=== PATIENT | male | born 1985 | race Caucasian/White ===

== ENCOUNTER 2019-12-14 02:01 | Outpatient (CLI) | payer OTHER, SELFPAY ==
[2019-12-14 22:26] LABS: SARS-CoV-2 RNA PCR Negative
== END 2019-12-14 02:02 | disposition home or self-care (01) ==
LOC: ANHCOVIDDT 02:02
PROVIDERS: PCP Family Medicine; Visit Provider Surgery
DX: Z01.818 Encounter for other preprocedural examination (principal); Z20.828 Contact with and (suspected) exposure to other viral communicable diseases
CPT/HCPCS: 87635; C9803; U0003

== ENCOUNTER 2019-12-18 00:49 | Day surgery (SDC) | payer OTHER, SELFPAY ==
[2019-12-12 09:22] VITALS: BMI 18.4
--- NOTE | 2019-12-17 13:36 | WPDANESEPPF ---
Anes - Initial Pre Proc Eval Procedure: Operation Date: 12/18/19 12:00 Proposed Procedures p Rectal Exam Under Anesthesia, Hemorrhoidectomy - Abby Sin MD Date/Time: 12/17/19 13:36 Surgeon: Abby Sin MD Pre Op Diagnosis: external hemorrhoids, rectal pain and bleeding Patient Data Age: 34 Gender: M Height: 1.75 m Weight: 56.7 kg Allergies Allergy/AdvReac Type Severity Reaction Status Date / Time Penicillins Allergy Mild Unknown- Verified 12/12/19 09:17 OCCURED CHILD amoxicillin Allergy Unknown Unknown- Verified 12/12/19 09:17 OCCURED CHILD erythromycin base Allergy Unknown Unknown - Verified 12/12/19 09:17 OCCURED CHILD penicillin G Allergy Unknown Unknown- Verified 12/12/19 09:17 OCCURED CHILD Sulfa (Sulfonamide Allergy Unknown Unknown- Verified 12/12/19 09:17 Antibiotics) OCCURED CHILD Home Medications Medication Instructions Recorded Confirmed Type warfarin 5 mg tablet See Rx Instructions PO .COMPLEX #0 06/20/19 12/12/19 Rx tablet alprazolam 0.5 mg tablet 0.5 mg PO QID PRN #120 tablet 10/15/19 12/12/19 Rx hydrocortisone 2.5 % topical cream 1 applic RECTAL DAILY PRN #30 gm 11/22/19 12/12/19 Rx with perineal applicator tramadol 50 mg tablet 50 mg PO Q6H PRN #30 tablet 11/24/19 12/12/19 Rx Cbd Gummy 1 ea PO DIRECTED PRN 12/12/19 History cholecalciferol (vitamin D3) 125 mcg PO DAILY 12/12/19 12/12/19 History [Vitamin D3] mirtazapine 15 mg PO HS 12/12/19 12/12/19 History multivitamin 1 tablet PO DAILY 12/12/19 12/12/19 History warfarin See Rx Instructions .ROUTE .COMPLEX 12/12/19 12/12/19 History PMFSH Past Medical History Medical History (Updated 12/17/19 @ 13:38 by Larry Prabhakar MD) Anorexia Anxiety Atresia congenital, pulmonary, valve Atrial fibrillation Depression Electronic cigarette use External hemorrhoid History of blood transfusion History of cardiac murmur penitentiary current use of anticoagulant Janie Tobacco use disorder, moderate, dependence Surgical History Surgical History History of cardioversion History of open heart surgery Family History Family History Mother Family history of malignant neoplasm of breast in first degree relative Father Depression Grandparent Cerebrovascular accident Nervous disorder Other Family history of coronary artery disease Family history of malignant neoplasm of breast Hypertension Social History Social History Smoking packs per day: 1.5 Smoking cigarettes per day: 30.0 Years smoked: 18 Smoking pack-years: 27.00 Smoking status: Current every day smoker (e-ciggs) Tobacco type: cigarettes and e-cigarettes/vaping Additional smoking assessment comments: QUIT CIGARETTES 2019 CURRENT VAPOR CIGARETTE Alcohol intake: never Substance use: current Substance use type: marijuana Last use: 12/12/2019 Spiritual care concerns: No Anes - Eval Final PreProcedure Day of Procedure 12/17/19 13:36 Patient weight: normal Heart: regular rate and rhythm Lungs: clear to auscultation and normal air movement Airway: Mallampati scale class II Neurological: alert and oriented Last oral intake: >/= 8 hours ASA classification: III Emergent: no Anesthetic plan: proceed Anesthesia type and monitoring: general GIVS Informed Consent: The patient's anesthetic plan and its attendant risks and benefits were discussed with the patient/family/POA. Questions were solicited and answers provided to the satisfaction of the patient/family/POA.
[2019-12-18] VITALS (11 sets, daily range): BP systolic 89–164; BP diastolic 53–122; PULSE 57–73; RESP 10–18; TEMP 36.1–36.4; O2SAT 100
[2019-12-18] MEDS: LACTATED RINGERS 1,000 ML 30 ML IV CONT ×2 (10:35→12:13)
[2019-12-18] MEDS: KETOROLAC 15 MG/ML VIAL (*BKC) IV PUSH (10:39)
[2019-12-18] MEDS: ACETAMINOPHEN 500 MG TABLET 1000 MG PO (10:39)
--- NOTE | 2019-12-18 10:40 | WPDHPUPDATE1 ---
History and Physical Update Update Date/Time: 12/18/19 10:40 History and Physical has been reviewed, including an updated exam of the patient. There are NO changes in the patient's condition. Risks, benefits, and alternatives have been discussed and questions answered. Patient agrees to proceed with procedure.
[2019-12-18 11:03] LABS: INR 1.1; Prothrombin Time 14.6 Seconds (11.1-14.7)
[2019-12-18 11:04] LABS: Partial Thromboplastin Time 32.7 SECONDS (22.3-36.8)
--- NOTE | 2019-12-18 11:11 | WPDANESEPPF ---
Anes - Initial Pre Proc Eval Procedure: Operation Date: 12/18/19 12:00 Proposed Procedures p Rectal Exam Under Anesthesia, Hemorrhoidectomy - Abby Sin MD Date/Time: 12/18/19 11:11 Surgeon: Abby Sin MD Pre Op Diagnosis: external hemorrhoids, rectal pain and bleeding Patient Data Age: 34 Gender: M Height: 5 ft 9 in Weight: 56 kg Last Vital Signs Temp 36.4 C L 12/18/19 10:11 Pulse 70 12/18/19 10:11 Resp 18 12/18/19 10:11 BP 93/65 L 12/18/19 10:11 Pulse Ox 100 12/18/19 10:11 Allergies Allergy/AdvReac Type Severity Reaction Status Date / Time Penicillins Allergy Mild Unknown- Verified 12/18/19 10:49 OCCURED CHILD amoxicillin Allergy Unknown Unknown- Verified 12/18/19 10:49 OCCURED CHILD erythromycin base Allergy Unknown Unknown - Verified 12/18/19 10:49 OCCURED CHILD penicillin G Allergy Unknown Unknown- Verified 12/18/19 10:49 OCCURED CHILD Sulfa (Sulfonamide Allergy Unknown Unknown- Verified 12/18/19 10:49 Antibiotics) OCCURED CHILD Home Medications Medication Instructions Recorded Confirmed Type warfarin 5 mg tablet See Rx Instructions PO .COMPLEX #0 06/20/19 12/18/19 Rx tablet alprazolam 0.5 mg tablet 0.5 mg PO QID PRN #120 tablet 10/15/19 12/18/19 Rx hydrocortisone 2.5 % topical cream 1 applic RECTAL DAILY PRN #30 gm 11/22/19 12/18/19 Rx with perineal applicator tramadol 50 mg tablet 50 mg PO Q6H PRN #30 tablet 11/24/19 12/18/19 Rx Cbd Gummy 1 ea PO DIRECTED PRN 12/12/19 12/18/19 History cholecalciferol (vitamin D3) 125 mcg PO DAILY 12/12/19 12/18/19 History [Vitamin D3] mirtazapine 15 mg PO HS 12/12/19 12/18/19 History multivitamin 1 tablet PO DAILY 12/12/19 12/18/19 History warfarin See Rx Instructions .ROUTE .COMPLEX 12/12/19 12/18/19 History Laboratory Tests 12/18/19 10:28 PT 14.6 Seconds Seconds (11.1-14.7) INR 1.1 APTT 32.7 SECONDS SECONDS (22.3-36.8) Patient hx anesthesia problems: post op nausea/vomiting Family hx anesthesia problems: none PMFSH Past Medical History Medical History Anorexia Anxiety Atresia congenital, pulmonary, valve Atrial fibrillation Depression Electronic cigarette use External hemorrhoid History of blood transfusion 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 Janie Tobacco use disorder, moderate, dependence Surgical History Surgical History History of cardioversion History of open heart surgery Family History Family History Mother Family history of malignant neoplasm of breast in first degree relative Father Depression Grandparent Cerebrovascular accident Nervous disorder Other Family history of coronary artery disease Family history of malignant neoplasm of breast Hypertension Social History Social History Smoking packs per day: 1.5 Smoking cigarettes per day: 30.0 Years smoked: 18 Smoking pack-years: 27.00 Smoking status: Current every day smoker (e-ciggs) Tobacco type: cigarettes and e-cigarettes/vaping Additional smoking assessment comments: QUIT CIGARETTES 2019 CURRENT VAPOR CIGARETTE Alcohol intake: never Substance use: current Substance use type: marijuana Last use: 12/12/2019 Spiritual care concerns: No Anes - Eval Final PreProcedure Day of Procedure 12/18/19 11:11 Patient weight: normal Heart: regular rate and rhythm Lungs: clear to auscultation Airway: Mallampati scale class II Neurological: alert and oriented Last oral intake: >/= 8 hours ASA classification: III Emergent: no Anesthetic plan: proceed Anesthesia type and monitoring: general GIVS and standard monitoring Informed Consent: The patient's anesthet
[2019-12-18] MEDS: CLINDAMYCIN 900 MG/D5W 50 ML 900 MG/50 ML PIGGYBACK 50 MG IVPB (12:08)
[2019-12-18] MEDS: LIDOCAINE HCL 2% GEL UROJET 10 ML PKG MUCOUS MEM (12:48)
--- NOTE | 2019-12-18 12:53 | PM.PROC ---
Procedure Note - Detailed Date of procedure: 12/18/19 Pre-op diagnosis: external hemorrhoids, rectal pain and bleeding Procedure performed: Exam under anesthesia, external hemorrhoidectomy Description of procedure: The patient was taken the operating room placed in the modified lithotomy position. After adequate induction of MAC anesthesia, the patient prepped and draped in the normal sterile fashion. A time-out was then done to verify the patient's identity, as well as the procedure being performed. A bilateral pudendal block was then done. I began by doing a digital rectal exam. Patient was noted to some external hemorrhoids on exam. I then used the anoscope to further examine anal canal. At this point, it was noted that the patient had no internal hemorrhoids. Examination of the anus below the dentate line revealed multiple external hemorrhoids. Given this, I excised multiple external hemorrhoids using the LigaSure device. I also excised some skin tags. Hemostasis was noted at these areas. At this point, I placed a piece of Gelfoam coated with lidocaine jelly into the rectal vault. Sterile dressing was then placed. The patient tolerated the procedure and was extubated in the operating room postop. He will be transferred recovery room in stable condition. Implants: none Anesthesia: MAC and local Surgeon: Abby Sin MD Estimated blood loss (mL): 20 Drains: No Packing: Yes Pathology: yes Complications: No immediate complications Condition: stable Disposition: PACU Findings: multiple external hemorrhoids and skin tags
--- NOTE | 2019-12-18 13:42 | SUR.PHASEI ---
Dr. Prabhakar aware of BP and wants to continue to monitor at this time.
[2019-12-18] MEDS: fentaNYL CITRATE INJ (*CRX) 100 MCG/2 ML VIAL 25 MCG IV PUSH (14:03)
[2019-12-18] MEDS: oxyCODONE HCL (*CRX) 5 MG TAB IR PO (14:40)
== END 2019-12-18 15:16 | disposition home or self-care (01) ==
PROVIDERS: Anesthesiology; PCP Family Medicine; Visit Provider Surgery
PROC: (CPT 46250; principal; 2019-12-18 12:00)
DX: K64.4 Residual hemorrhoidal skin tags (principal); I48.0 Paroxysmal atrial fibrillation; Z79.01 Long term (current) use of anticoagulants; R63.0 Anorexia; Z68.1 Body mass index [BMI] 19.9 or less, adult; F41.9 Anxiety disorder, unspecified; F32.9 Major depressive disorder, single episode, unspecified; Q22.0 Pulmonary valve atresia; F17.290 Nicotine dependence, other tobacco product, uncomplicated; Z79.899 Other long term (current) drug therapy; Z88.0 Allergy status to penicillin; Z88.2 Allergy status to sulfonamides; Z88.1 Allergy status to other antibiotic agents
CPT/HCPCS: 46250; 36415; 85610; 85730; 88304; A9270; J1885; J2250; J2704; J3010; J7120

== ENCOUNTER → 2020-03-17 03:46 | Outpatient (CLI) | payer OTHER, SELFPAY ==
[2020-03-18 18:18] LABS: SARS-CoV-2 RNA PCR Negative
== END ==
PROVIDERS: PCP Family Medicine; Visit Provider Internal Medicine Gastroenterology
DX: Z01.812 Encounter for preprocedural laboratory examination (principal); Z20.822 Contact with and (suspected) exposure to COVID-19
CPT/HCPCS: C9803; U0003; U0005

== ENCOUNTER 2020-03-20 01:01 | Day surgery (SDC) | payer OTHER, SELFPAY ==
[2020-03-09 11:26] VITALS: BMI 19.2
[2020-03-20 09:18] VITALS: BP 127/69; PULSE 82; RESP 18; TEMP 36.8; O2SAT 100; BMI 18.6
[2020-03-20] MEDS: LACTATED RINGERS 1,000 ML 150 ML IV CONT (09:25)
--- NOTE | 2020-03-20 10:29 | WPDANESEPPF ---
Anes - Initial Pre Proc Eval Procedure: Operation Date: 03/20/20 10:30 Proposed Procedures p Colonoscopy - Ziggy Pierre MD Date/Time: 03/20/20 10:29 Surgeon: Ziggy Pierre MD Pre Op Diagnosis: Diarrhea Patient Data Age: 35 Gender: M Height: 5 ft 9 in Weight: 57.4 kg Last Vital Signs Temp 98.3 F 03/20/20 09:18 Pulse 82 03/20/20 09:18 Resp 18 03/20/20 09:18 BP 127/69 03/20/20 09:18 Pulse Ox 100 03/20/20 09:18 Allergies Allergy/AdvReac Type Severity Reaction Status Date / Time Penicillins Allergy Mild Unknown- Verified 03/20/20 09:16 OCCURED CHILD amoxicillin Allergy Unknown Unknown- Verified 03/20/20 09:16 OCCURED CHILD erythromycin base Allergy Unknown Unknown - Verified 03/20/20 09:16 OCCURED CHILD penicillin G Allergy Unknown Unknown- Verified 03/20/20 09:16 OCCURED CHILD Sulfa (Sulfonamide Allergy Unknown Unknown- Verified 03/20/20 09:16 Antibiotics) OCCURED CHILD Home Medications Medication Instructions Recorded Confirmed Type Cbd Gummy 1 ea PO DIRECTED PRN 12/12/19 03/20/20 History cholecalciferol (vitamin D3) 125 mcg PO DAILY 12/12/19 03/20/20 History [Vitamin D3] warfarin 7.5 mg PO DIRECTED 12/12/19 03/20/20 History alprazolam 1 mg tablet 1 mg PO BID #60 tablet 02/03/20 03/20/20 Rx warfarin 5 mg PO DIRECTED 03/09/20 03/20/20 History Patient hx anesthesia problems: none Family hx anesthesia problems: none PMFSH Past Medical History Medical History Anorexia Anxiety Atresia congenital, pulmonary, valve Atrial fibrillation Depression Electronic cigarette use External hemorrhoid History of blood transfusion History of cardiac murmur Irritable bowel syndrome with diarrhea USP current use of anticoagulant Janie Tobacco abuse Tobacco use disorder, moderate, dependence Surgical History Surgical History History of cardioversion History of open heart surgery Family History Family History Mother Family history of malignant neoplasm of breast in first degree relative Father Depression Grandparent Cerebrovascular accident Nervous disorder Other Family history of coronary artery disease Family history of malignant neoplasm of breast Hypertension Social History Social History Smoking packs per day: 2 Smoking cigarettes per day: 40.0 Years smoked: 16 Smoking pack-years: 32.00 Smoking status: Former smoker Tobacco type: e-cigarettes/vaping Additional smoking assessment comments: QUIT CIGARETTES 2019 CURRENT VAPOR CIGARETTE Alcohol intake: never Substance use: current Substance use type: marijuana Other substance usage details: DAILY Last use: 12/12/2019 Living arrangements: with family Spiritual care concerns: No Anes - Eval Final PreProcedure Day of Procedure 03/20/20 10:29 Patient weight: normal Heart: regular rate and rhythm and murmur Lungs: clear to auscultation Airway: Mallampati scale class II Neurological: alert and oriented Last oral intake: >/= 8 hours ASA classification: III Emergent: no Anesthetic plan: proceed Anesthesia type and monitoring: general GIVS and standard monitoring Informed Consent: The patient's anesthetic plan and its attendant risks and benefits were discussed with the patient/family/POA. Questions were solicited and answers provided to the satisfaction of the patient/family/POA.
--- NOTE | 2020-03-20 10:49 | WPDHPUPDATE1 ---
History and Physical Update Update Date/Time: 03/20/20 10:49 History and Physical has been reviewed, including an updated exam of the patient. There are NO changes in the patient's condition. Risks, benefits, and alternatives have been discussed and questions answered. Patient agrees to proceed with procedure.
[2020-03-20 11:21] VITALS: BP 99/66; PULSE 60; RESP 18; O2SAT 100
[2020-03-20 11:31] VITALS: BP 106/72; PULSE 62; RESP 17; O2SAT 100
[2020-03-20 11:41] VITALS: BP 120/87; PULSE 66; RESP 15; O2SAT 100
== END 2020-03-20 12:02 | disposition home or self-care (01) ==
PROVIDERS: PCP Family Medicine; Visit Provider Internal Medicine Gastroenterology
PROC: 0DJD8ZZ Inspection of Lower Intestinal Tract, Via Natural or Artificial Opening Endoscopic (ICD-10-PCS; CPT 45378; principal; 2020-03-20 10:30)
DX: R19.8 Other specified symptoms and signs involving the digestive system and abdomen (principal); D12.5 Benign neoplasm of sigmoid colon; K63.5 Polyp of colon; K64.8 Other hemorrhoids; K64.4 Residual hemorrhoidal skin tags; R19.7 Diarrhea, unspecified; K58.0 Irritable bowel syndrome with diarrhea; R63.0 Anorexia; Z68.1 Body mass index [BMI] 19.9 or less, adult; F41.9 Anxiety disorder, unspecified; I48.91 Unspecified atrial fibrillation; F32.9 Major depressive disorder, single episode, unspecified; Z79.01 Long term (current) use of anticoagulants; F12.90 Cannabis use, unspecified, uncomplicated; F17.290 Nicotine dependence, other tobacco product, uncomplicated
CPT/HCPCS: 45380; 45385; 88305; J2001; J2704; J7120

== ENCOUNTER 2021-09-15 15:33 | Emergency (ER) | payer OTHER, SELFPAY ==
[2021-09-15] VITALS (19 sets, daily range): BP systolic 127–151; BP diastolic 90–109; PULSE 61–81; RESP 13–25; TEMP 36.4; O2SAT 96–100
--- NOTE | ~2021-09-15 | XR_ITS ---
XR chest 2V DATE: 09/15/2021 16:46 INDICATION: Palpitations. History of atrial fibrillation. Smoking history. TECHNIQUE: PA and lateral views COMPARISON: 10/19/2016 two-view chest FINDINGS: There is prominent bilateral hyperinflation with flattening the diaphragm, consistent with COPD. Normal heart size. Aortic arch calcification. No hilar or mediastinal enlargement. No pulmonary infil trate or consolidation, pleural effusion or pulmonary vascular congestion or pneumothorax is detected . Status post sternotomy. Osteopenia. IMPRESSION: COPD Aortic atherosclerosis Reviewed, dictated and finalized at location [facility]. IMPRESSION: COPD Aortic atherosclerosis
--- NOTE | 2021-09-15 15:36 | ECG_ITS ---
Measurements Intervals [place] Rate: 74 P: 89 AK: 181 QRS: 99 QRSD: 92 T: 78 QT: 354 QTc: 393 Interpretive Statements SINUS RHYTHM RIGHT ATRIAL ENLARGEMENT [0.3mV P WAVE] LEFT ATRIAL ENLARGEMENT [-0.15mV P WAVE IN V1/V2] INCOMPLETE RIGHT BUNDLE BRANCH BLOCK RIGHT VENTRICULAR HYPERTROPHY POSSIBLE LEFT VENTRICULAR HYPERTROPHY [VOLTAGE CRITERIA PLUS LAE OR QRS WIDENING] NO PREVIOUS ECG AVAILABLE FOR COMPARISON NOTE: ST ELEVATION IN V1 AND V2 IS SUGGESTIVE, ALTHOUGH NOT DIAGNOSTIC, OF THE BRUGADA PATTERN. CONSIDER FURTHER EVALUATION IF CLINICALLY APPROPRIATE. Electronically Signed On 09-15-2021 18:46:48 CDT by Olga Mathis M.D.
[2021-09-15 16:01] LABS: Basophils Percent Auto 0.5 % (0.2-1.2); Eosinophils Absolute Auto 0.1 K/mm3 (0-0.3); Eosinophils Percent Auto 1.1 % (0-4.4); Hematocrit 43.7 % (42.0-52.0); Hemoglobin 14.5 g/dL (14.0-18.0); Immature Granulocyte Absolute 0.04 K/mm3 (0.00-0.031); Immature Granulocyte Percent A 0.5 % (0-0.5); Lymphocytes Absolute Auto 2.03 K/mm3 (0.9-3.2); Lymphocytes Percent Auto 23.3 % (18.3-44.2); Mean Corpuscular HGB Conc 33.2 g/dl (32-36); Mean Corpuscular Hemoglobin 30.8 pg (26-34); Mean Corpuscular Volume 92.8 fl (80-100); Mean Platelet Volume 10.9 fl (7.4-10.4); Monocytes Absolute Auto 0.7 K/mm3 (0.1-0.6); Neutrophils Absolute Auto 5.8 K/mm3 (1.3-6.7); Neutrophils Percent Auto 66.6 % (45.5-73.1); Platelet Count Result 222 k/mm3 (150-375); Red Blood Count 4.71 M/mm3 (4.6-6.20); Red Cell Distribution Width 12.4 % (11.5-14.5); White Blood Count 8.7 K/mm3 (4.5-10.0)
[2021-09-15 16:09] LABS: Alanine Aminotransferase 49 U/L (6-50); Albumin Level 4.6 g/dL (3.5-5.1); Alkaline Phosphatase 71 U/L (38-126); Anion Gap 7 mmol/L (8-16); Aspartate Amino Transferase 53 U/L (17-59); Bilirubin,Total 0.5 mg/dL (0.2-1.3); Blood Urea Nitrogen 22 mg/dL (9-20); Calcium 9.6 mg/dL (8.4-10.2); Carbon Dioxide 30 mmol/L (22-30); Chloride 97 mmol/L (98-107); Estimated CRCL calculation 85 ml/min; Estimated Glomerular Filt Rate > 60; Glucose 97 mg/dL (65-110); INR 3.6; Lipase 99 U/L (23-300); Potassium 4.5 mmol/L (3.4-5.0); Sodium 134 mmol/L (137-145)
[2021-09-15 16:10] LABS: Partial Thromboplastin Time 55.3 SECONDS (22.3-36.8)
[2021-09-15 16:20] LABS: Troponin I < 0.012 ng/mL (0.000-0.034)
--- NOTE | 2021-09-15 17:42 | ED.CHESTPAIN ---
HPI - Chest Pain General Chief Complaint: Chest Pain Stated Complaint: chest pain, palp, L sided numbness since 8am Time Seen by Provider: 09/15/21 17:38 Source: patient Mode of arrival: ambulatory Limitations: no limitations History of Present Illness HPI narrative: Patient is a 36 y/o male who presents to the ED with c/o CP. Patient has Hx of congenital heart defect/pulmonary atresia and atrial fibrillation since he was 5 yrs old. On Warfarin therapy, goal 2-3. No Hx of CAD. Patient reports he thinks he went into atrial fibrillation for a brief few seconds on Monday night. He has had intermittent palpitations, as well as intermittent brief numbness in his left-sided face/arm over the last 2 days since then. This morning, he reported having pain in his left lower chest, rated a 0.5-1 out of 10 on the pain scale. He notes he did lots of yard work this weekend and thought he may have overdone it. He tried taking a hydrocodone without relief of pain. Pain has persisted throughout the day, occurring for seconds at a time, several times throughout the day. He states pain was worse with stressful situations at work, but denies aggravation with exertion or any other aggravating factors. Denies any shortness of breath, pleuritic pain, dyspnea on exertion, nausea, vomiting, abdominal pain, BLE pain or swelling, focal weakness, slurred speech, confusion. Related Data Home Medications Medication Instructions Recorded Confirmed cholecalciferol (vitamin D3) 125 125 mcg PO DAILY 12/12/19 08/11/21 mcg (5,000 unit) tablet (Vitamin D3) cannabidiol 100 mg/mL oral solution PO ONCE PRN pain 08/11/21 08/11/21 Allergies Allergy/AdvReac Type Severity Reaction Status Date / Time Penicillins Allergy Mild Unknown- Verified 08/11/21 10:35 OCCURED CHILD amoxicillin Allergy Unknown Unknown- Verified 08/11/21 10:35 OCCURED CHILD erythromycin base Allergy Unknown Unknown - Verified 08/11/21 10:35 OCCURED CHILD penicillin G Allergy Unknown Unknown- Verified 08/11/21 10:35 OCCURED CHILD Sulfa (Sulfonamide Allergy Unknown Unknown- Verified 08/11/21 10:35 Antibiotics) OCCURED CHILD Review of Systems Review of Systems: CONSTITUTIONAL: Denies fever, chills, or sweats. EYES: Denies visual changes. CARDIOVASCULAR: Reports L sided CP, palpitations. Denies BLE edema. RESPIRATORY: Denies cough, pleuritic pain, CASTLE, or dyspnea. GASTROINTESTINAL: Denies abdominal pain, nausea, vomiting. MUSCULOSKELETAL: Denies BLE pain. NEUROLOGIC: Reports numbness L sided face/arm. Denies headache, confusion, or focal weakness. All systems reviewed & are unremarkable except as noted in HPI and below PMFSH Past Medical History Medical History Anorexia Anxiety Atresia congenital, pulmonary, valve Atrial fibrillation Depression Electronic cigarette use Gastroenteritis History of blood transfusion History of cardiac murmur Irritable bowel syndrome with diarrhea snf current use of anticoagulant Janie Tobacco abuse Tobacco use disorder, moderate, dependence Surgical History Surgical History History of cardioversion History of open heart surgery Family History Family History Mother Family history of malignant neoplasm of breast in first degree relative Breast cancer Father Depression Anxiety Grandparent Cerebrovascular accident Nervous disorder Sibling ADD (attention deficit disorder) Other Family history of coronary artery disease Family history of malignant neoplasm of breast Hypertension Social History Social History Smoking packs per day: 1 Smoking cigarettes per day: 20.0 Years smoked: 20 Smoking pack-years: 20.00 Smoking status: Current
[2021-09-15 19:05] LABS: Troponin I < 0.012 ng/mL (0.000-0.034)
== END 2021-09-15 20:38 | disposition home or self-care (01) ==
PROVIDERS: Emergency Medicine; Emergency Provider Emergency Medicine; PCP Family Medicine
DX: R07.89 Other chest pain (principal); I48.91 Unspecified atrial fibrillation; Z79.01 Long term (current) use of anticoagulants; T45.515A Adverse effect of anticoagulants, initial encounter; I45.10 Unspecified right bundle-branch block; F41.9 Anxiety disorder, unspecified
CPT/HCPCS: 36415; 71046; 80053; 83690; 84484; 85025; 85610; 85730; 93005; 99284

== ENCOUNTER 2022-02-16 15:19 | Outpatient (CLI) | payer OTHER, SELFPAY ==
--- NOTE | ~2022-02-16 | XR_ITS ---
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 RESULT: Lines, tubes, and devices: Intact sternotomy wires. Cardiac valve replacement. Lungs and pleura: Clear. Cardiomediastinal silhouette: Stable. Other: No acute osseous or upper abdominal finding. IMPRESSION: No acute cardiopulmonary process. Reviewed, dictated and finalized at location [facility]. 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
== END 2022-02-16 15:20 | disposition home or self-care (01) ==
LOC: ANHIMG 15:28
PROVIDERS: PCP Family Medicine
DX: Q25.5 Atresia of pulmonary artery (principal)
CPT/HCPCS: 71046

== ENCOUNTER 2022-03-17 09:14 | Outpatient (CLI) | payer OTHER, SELFPAY ==
--- NOTE | 2022-03-17 | ECG_ITS ---
Measurements Intervals [place] Rate: 75 P: 79 WI: 197 QRS: 87 QRSD: 93 T: 75 QT: 369 QTc: 414 Interpretive Statements SINUS RHYTHM RIGHT ATRIAL ENLARGEMENT [0.3mV P WAVE] LEFT ATRIAL ENLARGEMENT [-0.15mV P WAVE IN V1/V2] INCOMPLETE RIGHT BUNDLE BRANCH BLOCK [90+ ms QRS DURATION, TERMINAL R IN V1/V2, 40+ ms S IN I/aVL/V4/V5/V6] POSSIBLE RIGHT VENTRICULAR HYPERTROPHY [SOME/ALL OF: PROMINENT R IN V1, LATE TRANSITION, RAD, PABLO, SSS] ST ELEVATION IN V1 AND V2 SUGGESTIVE OF BRUGADA COMPARED TO ECG 09/15/2021 15:38:56 T-WAVE INVERSIONS NOW IN LEAD V2, OTHERWISE NO SIGNIFICANT CHANGES Electronically Signed On 03-17-2022 15:42:08 TRIAL MGR by Crista Schneider M.D.
== END 2022-03-17 09:15 | disposition home or self-care (01) ==
LOC: ANHCARD 09:17
PROVIDERS: PCP Family Medicine
DX: I48.0 Paroxysmal atrial fibrillation (principal); Z95.2 Presence of prosthetic heart valve; Q21.10 Atrial septal defect, unspecified; Q25.5 Atresia of pulmonary artery; I51.7 Cardiomegaly; I45.10 Unspecified right bundle-branch block
CPT/HCPCS: 93005

== ENCOUNTER 2022-04-21 16:30 | Outpatient (RCR) | payer OTHER, SELFPAY ==
[2022-02-08 12:05] VITALS: PULSE 73
== END 2022-05-20 10:26 | disposition home or self-care (01) ==
LOC: ANHCPREHAB 16:30
PROVIDERS: PCP Family Medicine
DX: Z95.2 Presence of prosthetic heart valve (principal)
CPT/HCPCS: 93798

== ENCOUNTER 2022-05-02 08:36 | Emergency (ER) | payer OTHER, MEDICAID, SELFPAY ==
--- NOTE | ~2022-05-02 | CT_ITS ---
EXAMINATION: CT abdomen pelvis w con DATE: 05/02/2022 10:25 INDICATION: Left lower quadrant abdominal pain for one week. Recent nausea, vomiting and diarrhea TECHNIQUE: Computed tomography (CT) of the abdomen and pelvis was performed with 100 CC Omnipaque 350 intravenous contrast. Automated exposure control and iterative reconstruction technique were employe d. Exam dose: 241.70 mGy-cm total exam DLP. COMPARISON: None. FINDINGS: Minimal dependent right lower lobe atelectasis. The lung bases are clear of infiltrate or c onsolidation. The liver, gallbladder, bile ducts, spleen, pancreas, pancreatic duct, and adrenal glands as well as kidneys are unremarkable. Normal caliber of the abdominal aorta. No intraperitoneal or retroperitoneal or pelvic mass lesion or adenopathy. Mild free fluid collection in the dependent pelvis. No bowel obstruction or intraperitoneal free air. No evidence of appendicitis is evident. Included skeletal structures are unremarkable. IMPRESSION: Mild free fluid collection in the dependent pelvis; otherwise unremarkable examination Reviewed, dictated and finalized at [facility]. Reviewed, dictated and finalized at location [facility]. IMPRESSION: Mild free fluid collection in the dependent pelvis; otherwise unremarkable exam ination
[2022-05-02 08:37] VITALS: BP 112/72; PULSE 81; RESP 18; TEMP 36.5; O2SAT 99
[2022-05-02 09:17] LABS: Basophils Absolute Auto 0.1 K/mm3 (0.0-0.1); Basophils Percent Auto 0.8 % (0.2-1.2); Eosinophils Absolute Auto 0.2 K/mm3 (0-0.3); Eosinophils Percent Auto 3.1 % (0-4.4); Hematocrit 39.9 % (42.0-52.0); Hemoglobin 13.1 g/dL (14.0-18.0); Immature Granulocyte Absolute 0.03 K/mm3 (0.00-0.031); Immature Granulocyte Percent A 0.4 % (0-0.5); Lymphocytes Absolute Auto 1.99 K/mm3 (0.9-3.2); Mean Corpuscular HGB Conc 32.8 g/dl (32-36); Mean Corpuscular Hemoglobin 29.5 pg (26-34); Mean Corpuscular Volume 89.9 fl (80-100); Mean Platelet Volume 10.5 fl (7.4-10.4); Monocytes Absolute Auto 0.7 K/mm3 (0.1-0.6); Neutrophils Absolute Auto 4.1 K/mm3 (1.3-6.7); Neutrophils Percent Auto 57.7 % (45.5-73.1); Platelet Count Result 205 k/mm3 (150-375); Red Blood Count 4.44 M/mm3 (4.6-6.20); Red Cell Distribution Width 13.9 % (11.5-14.5); White Blood Count 7.1 K/mm3 (4.5-10.0)
[2022-05-02 09:19] LABS: Appearance Urine Clear (Clear); Bilirubin Urine Negative (Negative); Blood Urine Negative (Negative); Color Urine Yellow (Yellow); Glucose Urine UA Negative (Negative); Ketones Urine Negative (Negative); Leukocyte Esterase Ur Negative LEU/UL (Negative); Nitrate Urine Negative (Negative); Protein Urine Negative (Negative); Specific Grav Ur 1.007 (1.001-1.035); Urobilinogen Urine 0.2 mg/dL (<2.0)
[2022-05-02 09:22] LABS: Add Urine Microscopic? NO
[2022-05-02 09:28] LABS: Alanine Aminotransferase 57 U/L (6-50); Albumin Level 3.6 g/dL (3.5-5.1); Alkaline Phosphatase 67 U/L (38-126); Anion Gap 4 mmol/L (8-16); Aspartate Amino Transferase 57 U/L (17-59); Bilirubin,Total 0.3 mg/dL (0.2-1.3); Blood Urea Nitrogen 19 mg/dL (9-20); Calcium 8.4 mg/dL (8.4-10.2); Carbon Dioxide 30 mmol/L (22-30); Chloride 102 mmol/L (98-107); Estimated Glomerular Filt Rate > 60; Glucose 88 mg/dL (65-110); Lipase 76 U/L (23-300); Potassium 4.6 mmol/L (3.4-5.0); Sodium 136 mmol/L (137-145)
--- NOTE | 2022-05-02 10:26 | ED.ABDPAIN ---
HPI - Abdominal Pain General Chief Complaint: Abdominal Pain Stated Complaint: LLQ pain Time Seen by Provider: 05/02/22 08:56 Source: patient Mode of arrival: ambulatory Limitations: no limitations History of Present Illness HPI narrative: Patient is a 37-year-old male who presents the ED with report of left lower quadrant abdominal pain. Patient reports he felt ill last week with intermittent fevers, nausea, vomiting, diarrhea. He did have some abdominal pain at that time. He was seen at a local urgent care and told he may have a virus/GI bug. He states most of his symptoms have improved since the middle of last week, but he complains of persistent left lower quadrant abdominal pain. He expresses concern for diverticulitis. He denies a previous history of diverticulitis or diverticulosis. Denies any current nausea, vomiting, diarrhea, constipation. Last bowel movement this morning. No rectal bleeding or melena. No recent fevers since last week. No cough or cold symptoms. No urinary symptoms. Patient has been taking Tylenol intermittently for his pain. 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 He currently takes warfarin. Denies CP or SOB. Related Data Home Medications Medication Instructions Recorded Confirmed cholecalciferol (vitamin D3) 125 125 mcg PO DAILY 12/12/19 02/08/22 mcg (5,000 unit) tablet (Vitamin D3) metoprolol succinate 25 mg 25 mg PO DAILY 02/08/22 02/08/22 tablet,extended release 24 hr multivitamin 1 tablet PO DAILY 02/08/22 02/08/22 Allergies Allergy/AdvReac Type Severity Reaction Status Date / Time Penicillins Allergy Mild Unknown- Verified 05/02/22 09:46 OCCURED CHILD amoxicillin Allergy Unknown Unknown- Verified 05/02/22 09:46 OCCURED CHILD erythromycin base Allergy Unknown Unknown - Verified 05/02/22 09:46 OCCURED CHILD penicillin G Allergy Unknown Unknown- Verified 05/02/22 09:46 OCCURED CHILD Sulfa (Sulfonamide Allergy Unknown Unknown- Verified 05/02/22 09:46 Antibiotics) OCCURED CHILD Review of Systems Review of Systems: CONSTITUTIONAL: See HPI. ENT: Denies rhinorrhea, congestion, sore throat. CARDIOVASCULAR: Denies chest pain. RESPIRATORY: Denies dyspnea. GASTROINTESTINAL: See HPI. GENITOURINARY: Denies dysuria or hematuria. All systems reviewed & are unremarkable except as noted in HPI and below PMFSH Past Medical History Medical History Anorexia Anxiety Atresia congenital, pulmonary, valve Atrial fibrillation Depression Electronic cigarette use Gastroenteritis History of blood transfusion History of cardiac murmur Irritable bowel syndrome with diarrhea assisted current use of anticoagulant Janie Tobacco abuse Tobacco use disorder, moderate, dependence Surgical History Surgical History History of cardioversion History of open heart surgery Family History Family History Mother Breast cancer Family history of malignant neoplasm of breast in first degree relative Father Anxiety Depression Grandparent Acute myocardial infarction Nervous disorder Cerebrovascular accident Family history of coronary artery disease Sibling ADD (attention deficit disorder) Other Family history of malignant neoplasm of breast Hypertension Social History Social History Smoking packs per day: 1 Smoking cigarettes per day: 20.0 Years smoked: 20 Smoking pack-years: 20.00 Smoking status: Former smoker Tobacco type: cigarettes Second hand tobacco smoke exposure: Yes Additional smoking assessment comments: QUIT CIGARETTES 2019 CURRENT VAPOR C
[2022-05-02] MEDS: SODIUM CHLORIDE 0.9% IV 1,000 ML 999 ML IV CONT (11:01)
[2022-05-02 11:05] LABS: INR 2.4; Prothrombin Time 25.2 Seconds (11.1-14.7)
[2022-05-02 11:06] LABS: Partial Thromboplastin Time 41.3 SECONDS (22.3-36.8)
[2022-05-02 11:36] VITALS: PULSE 67; RESP 16; O2SAT 97
[2022-05-02 11:39] VITALS: BP 129/86
== END 2022-05-02 11:58 | disposition home or self-care (01) ==
PROVIDERS: Emergency Provider Physician Assistant; PCP Family Medicine
DX: R10.32 Left lower quadrant pain (principal); I48.91 Unspecified atrial fibrillation; K58.0 Irritable bowel syndrome with diarrhea; F41.9 Anxiety disorder, unspecified; F32.A Depression, unspecified; F17.290 Nicotine dependence, other tobacco product, uncomplicated; Z95.2 Presence of prosthetic heart valve; Z79.01 Long term (current) use of anticoagulants; Z87.74 Personal history of (corrected) congenital malformations of heart and circulatory system
CPT/HCPCS: 36415; 74177; 80053; 81003; 83690; 85025; 85610; 85730; 96365; 99284; J0131; J7030; Q9967

== ENCOUNTER 2023-02-01 16:06 | Emergency (ER) | payer OTHER, SELFPAY ==
[2023-02-01 16:14] VITALS: BP 109/73; PULSE 78; RESP 16; TEMP 37.5; O2SAT 100
--- NOTE | 2023-02-01 17:17 | ED.URI ---
HPI - URI/Sore Throat General Chief Complaint: Upper Respiratory Infection Stated Complaint: Lethargic, Congestion, Cough, Bodyache History of Present Illness HPI Narrative: 37-year-old male presented for complaint of headache, sore throat, body aches, sinus pressure/congestion, cough, fever/chills. Onset 3 days. denies sob, wheezing, n/v/d. Related Data Home Medications Medication Instructions Recorded Confirmed cholecalciferol (vitamin D3) 125 125 mcg PO DAILY 12/12/19 02/01/23 mcg (5,000 unit) tablet (Vitamin D3) metoprolol succinate 25 mg 25 mg PO DAILY 02/08/22 02/01/23 tablet,extended release 24 hr multivitamin 1 tablet PO DAILY 02/08/22 02/01/23 aspirin 81 mg tablet,delayed 81 mg PO DAILY 09/19/22 02/01/23 release (Adult Aspirin Regimen) cetirizine 10 mg tablet (Zyrtec) 10 mg PO DAILY PRN Allergy Symptoms 09/19/22 02/01/23 vitamin B complex 1 cap PO DAILY 09/19/22 02/01/23 Allergies Allergy/AdvReac Type Severity Reaction Status Date / Time Penicillins Allergy Mild Unknown- Verified 09/19/22 08:50 OCCURED CHILD amoxicillin Allergy Unknown Unknown- Verified 09/19/22 08:50 OCCURED CHILD erythromycin base Allergy Unknown Unknown - Verified 09/19/22 08:50 OCCURED CHILD penicillin G Allergy Unknown Unknown- Verified 09/19/22 08:50 OCCURED CHILD Sulfa (Sulfonamide Allergy Unknown Unknown- Verified 09/19/22 08:50 Antibiotics) OCCURED CHILD Review of Systems Review of Systems: ROS per HPI [facility] Past Medical History Medical History Anorexia Anxiety Atresia congenital, pulmonary, valve Atrial fibrillation Depression Electronic cigarette use Gastroenteritis History of blood transfusion History of cardiac murmur Irritable bowel syndrome with diarrhea 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 Janie Tobacco abuse Tobacco use disorder, moderate, dependence Surgical History Surgical History History of cardioversion History of open heart surgery Family History Family History Mother Breast cancer Family history of malignant neoplasm of breast in first degree relative Father Anxiety Depression Grandparent Acute myocardial infarction Nervous disorder Cerebrovascular accident Family history of coronary artery disease Sibling ADD (attention deficit disorder) Other Family history of malignant neoplasm of breast Hypertension Social History Social History Smoking packs per day: 1 Smoking cigarettes per day: 20.0 Years smoked: 20 Smoking pack-years: 20.00 Smoking status: Former smoker Tobacco type: cigarettes Second hand tobacco smoke exposure: Yes Additional smoking assessment comments: QUIT CIGARETTES 2019 CURRENT VAPOR CIGARETTE Alcohol intake: never Substance use: current Substance use type: marijuana Other substance usage details: DAILY Last use: 12/12/2019 Living arrangements: with roommate(s) Occupation/Education: occupation 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 EYES: conjunctivae clear ENT: Mucous membranes moist. TM pearly gonzales with normal light reflex bilaterally; no tragal tenderness. Oropharynx erythematous without lesions. Tonsils enlarged and without exudate. No drooling, no hoarseness, no trismus, uvula midline. No tripod positioning, hot potato voice, or soft palate swelling. NECK: Supple. No lymphadenopathy CHEST: Clear to auscultation, breath sounds equal. No respiratory distress, speaks in full sentences. HEART: Regular rate and rhythm. No mu
== END 2023-02-01 17:28 | disposition home or self-care (01) ==
PROVIDERS: Emergency Provider Nurse Practitioner Family; PCP Family Medicine
DX: J06.9 Acute upper respiratory infection, unspecified (principal); Z20.822 Contact with and (suspected) exposure to COVID-19; F17.290 Nicotine dependence, other tobacco product, uncomplicated; I48.91 Unspecified atrial fibrillation; R01.1 Cardiac murmur, unspecified; F41.9 Anxiety disorder, unspecified; F32.A Depression, unspecified; Z79.82 Long term (current) use of aspirin
CPT/HCPCS: 87426; 87804; 99213; C9803; G0463

== ENCOUNTER 2024-10-17 16:59 | Emergency (ER) | payer SELFPAY ==
[2024-10-17] VITALS (23 sets, daily range): BP systolic 123–167; BP diastolic 91–113; PULSE 62–92; RESP 11–20; TEMP 36.4–36.7; O2SAT 90–100
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
--- NOTE | ~2024-10-17 | XR_ITS ---
XR tibia fibula RT 2V 10/17/2024 19:21 Indication: Follow-up right tibial fracture. Procedure: 4 views right tibia/fibula Comparison: 10/17/2024 Findings: Stable alignment of oblique mildly displaced proximal fibular fracture. Improved alignment of spiral fracture distal tibial shaft. Stable nondisplaced distal fibular fracture. Impression: 1: Improved alignment of spiral fracture distal tibial diaphysis. Reviewed, dictated and finalized at location O. Impression: 1: Improved alignment of spiral fracture distal tibial diaphysis.
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
--- NOTE | ~2024-10-17 | XR_ITS ---
[id number] 10/17/2024 18:01 Indication: Right knee injury Procedure: 2 views right knee Comparison: No prior studies for comparison. Findings: There is an oblique proximal fibular metadiaphyseal fracture with mild displacement. No other fracture. No significant soft tissue abnormality. No foreign bodies. Impression: 1: Oblique mildly displaced extra-articular fracture proximal fibular metadiaphysis. Reviewed, dictated and finalized at location O. Impression: 1: Oblique mildly displaced extra-articular fracture proximal fibular metadiaph ysis.
--- OUTSIDE RECORDS SUMMARY | 2024-10-17 17:01 | XMS_ITS | Encounter Summary ---
Author Organization [facility] Address [address] [place] [address] Phone Care Team Providers Care Disabilities Services Officer Name Role Phone Frank Barahona MD Primary Care Provider [phone] Frank Barahona MD Unavailable [phone] Encounter Details Date Type Department Care Team (Late st Contact Info) Description 09/16/2021 Telephone [facility] Cardiology [address] Advanced Medicine 8th [place] [address] [place] [address] Alma Rob Social History Tobacco Use Types Packs/Day Years Used Date Smoking Tobacco: Every Day Cigarettes Smokeless Tobacco: Never Sex and Gender Information Value Date Recorded Sex Assigned at Not on file Legal Sex Male 8:04 AM SERVICE DELIVERY MANAGEMENT CONSULTANT Gender Identity Not on file Sexual Orientation Not on file documented as of this encounter Plan of Treatment Not on file documented as of this encounter Visit Diagnoses Not on filedocumented in this encounter Additional Health Concerns Infection Onset Date Last Indicated Resolved Time COVID: Suspected 04/03/2022 04/03/2022 04/03/2022 9:21 AM SERVICE DELIVERY MANAGEMENT CONSULTANT COVID: Suspected 04/03/2022 04/03/2022 04/03/2022 1:55 PM SERVICE DELIVERY MANAGEMENT CONSULTANT COVID: Suspected 04/25/2022 04/25/2022 04/25/2022 5:40 PM CDT COVID: Suspected 08/27/2022 08/27/2022 08/27/2022 3:11 PM CDT COVID: Suspected 01/16/2023 01/16/2023 01/16/2023 10:20 AM SERVICE DELIVERY MANAGEMENT CONSULTANT COVID: Suspected 01/16/2023 01/16/2023 01/16/2023 4:04 PM SERVICE DELIVERY MANAGEMENT CONSULTANT COVID: Suspected 06/21/2023 06/21/2023 06/21/2023 9:40 AM CDT documented as of this encounter Care Teams Disabilities Services Officer Relationship Specialty Start Date End Date Frank Barahona MD PCP - General Family Medicine 02/14/21 Frank Barahona MD 02/14/21 documented as of this encounter
--- OUTSIDE RECORDS SUMMARY | 2024-10-17 17:01 | XMS_ITS | Clinical Summary ---
Author Organization [facility] Address [address] [place] [address] Phone Care Team Providers Care Collection Analyst Name Role Phone Frank Barahona MD Primary Care Provider [phone] Kate Duke APRN, BUSINESS OPERATIONS CONSULTANT Unavailable [phone] Francis Woodard MD Unavailable [phone] [facility], [facility] Unavailab le Unavailable Allergies Active Allergy Reactions Criticality Noted Date Comments Azithromycin Rash Medium 02/14/2021 Erythromycin Other (see Comments),Rash Low 03/07/2019 Reaction: Unknown, Penicillins Rash Medium 03/07/2019 Sulfa Antibiotics Unknown 03/07/2019 Medications ALPRAZolam (XANAX) 1 MG Tablet Take 0.5 mg by mouth 4 times daily. 03/24/2014 Active busPIRone HCl 7.5 MG Tablet Take 7.5 mg by mouth 2 times daily. 11/01/2021 Active Cholecalciferol 25 mcg Capsule Take 1,000 Units by mouth. Active escitalopram (LEXAPRO) 20 MG Tablet Take 20 mg by mouth every morning. 10/07/2021 Active Multiple Vitamins-Minera ls (MULTIVITAMIN ADULTS PO) Take 1 Tablet by mouth daily. Active acetaminophen (TYLENOL) 325 MG Tablet Take 2 Tablets by mouth every 6 hours as needed for Mild or more severe pain. 120 Tablet 01/14/2022 Active aspirin 81 MG Chewable Tablet Take 1 Tablet by mouth daily. 30 Tablet 01/15/2022 Active Cetirizine HCl (ZYRTEC PO) Take by mouth daily as needed. Active B Complex Vitamins (VITAMIN B COMPLEX PO) Take by mouth daily. Active metoprolol Succinate (TOPROL-XL) 25 MG TABLET SR 24 HR Take 1 Tablet by mouth daily. 90 Tablet 04/11/2024 Active Active Problems Problem Noted Date Diagnosed Date S/P pulmonary valve replacement 01/11/2022 Paroxysmal atrial fibrillation 12/08/2021 Pulmonary atresia with intact ventricular septum 12/08/2021 Atrial septal defect 12/08/2021 Immunizations Immunization Administration Dates Next Due Albumin IV 01/12/2022,,01/11/2022,01/11,01/11/2022,01/11/2022,01/11/2022 ,01/11/2022,01/11/2022 Influenza Vaccine, MDCK,quad rivalent, pres free 12/10/2021 Pneumococcal conjugate PCV20 , polysaccharide [id number] conjugate, adjuvant, PF 12/23/2021 TDAP Vaccine 12/23/2021 Social History Tobacco Use Types Packs/Day Years Used Date Smoking Tobacco: Every Day Cigarettes 0.3 20 Smokeless Tobacco: Never Tobacco Cessation:Ready to Q uit: Not Asked; Counseling Given: Not Answered Alcohol Use Standard Drinks/Week Comments Not Currently 0 (1 standard drink = 0.6 oz pur e alcohol) Sexually Active Control Partners Comments Not Currently Male Condom Female Sex and Gender Information Value Date Recorded Sex Assigned at Not on file Legal Sex Male 3:35 PM CDT Gender Identity Not on file Sexual Orientation Not on file Last Filed Vital Signs Vital Sign Reading Time Taken Comments Blood Pressure 116/77 09/14/2022 12:46 PM CDT Pulse 66 09/14/2022 12:46 PM CDT Temperature 36.9 C (98.5 F) 01/14/2022 12:00 PM ADMINISTRATIVE PROFESSIONAL Respiratory Rate 16 01/14/2022 8:00 AM ADMINISTRATIVE PROFESSIONAL Oxygen Saturation 99% 09/14/2022 12:46 PM CDT Inhaled Oxygen Concentration - - Weight 66.2 kg (146 lb) 09/14/2022 12:46 PM CDT Height 175.3 cm (5' 9) 09/14/2022 12:46 PM CDT Body Mass Index 21.56 09/14/2022 12:46 PM CDT Plan of Treatment Health Maintenance Due Date Last Done Comments Hepatitis C Virus (HCV) Screening 1984 Hepatitis B Immunization (1 of 3 - 19+ 3-dose series) 02/02/2003 Human Papillomavirus (HPV) Immunization (1 - 3-dose SCDM series) 02/02/2011 Influenza Immunization (#1) 2024 12/10/2021 SARS-COV-2 Immunization ( season) 2024 12/10/2021, 10/16/2020, 09/18/2020 Td Immunization Every 10 Yea rs (Adults With 1 Tdap) 12/24/2031 12/23/2021 Respiratory Syncytial Virus (RSV) Immunization (Adult) (1 - 1-dose 75+ series) 02/02/2059 DTaP/Tdap/Td Immunization Discontinued 12/23/2021 Pneumococcal Immunization Combined Aged Out 12/23/2021 No longer eligible based on patient's age to complete this topic Meningococcal Immunization (ACWY) Aged Out No longer eligible based on patient's age to complete this topic Rotavirus Immunization Aged Out No lo nger eligible based on patient's age to complete this topic Medical Devices Implanted Type Area Mileage Clerk Device Identifier Shelf Expiration Date Model / Serial / Lot Pledget Cardiovascular 3/16x3/8in Bard Thk1.65mm Rectangle Ptfe Lin[place] Strl - [id number] Implanted:Qty: 1 on 01/11/2022 by Neri Sal MD at [facility] IMPLANT N/A: Heart [employer] 05/03/2026 [id number] / / [id number] Suture Ss 6 Ccs 18in Mfl 4 Strand Silver Nabsb - [id number] Implanted:Qty: 2 on 01/11/2022 by Neri Sal MD at [facility] IMPLANT N/A: Sternum [employer] 04/05/2026 [id number] / / [id number] Valve Aortic Inspiris Resilla 25mm - [id number] Implanted:Qty: 1 on 01/11/2022 by Neri Sal MD at [facility] IMPLANT N/A: Heart [employer] 09/15/2025 [id number] / [id number] / N/A Patch Photofix Decellurized Pericardium 6x8 - [id number] Implanted:Qty: 1 on 01/11/2022 by Neri Sal MD at [facility] IMPLANT N/A: Heart [employer] 06/20/2023 PFP / / [id number] Insurance [place] [place] [address] [place] [address] [facility] MEDICAID [place] Advance Directives Documents on File Type Date Recorded Patient Medical Laboratory Specialist Expl anation Power of Extrusion Die Repair Manager for Health Care 01/12/2022 1:26 PM POA-HC, 01/11/2022 * Full Code (Latest Code Status on File) Date Activated Date Inactivated Comments 01/11/2022 2:45 PM 01/14/2022 3:52 PM CPR-Full Sammy atment: FULL ARREST: Attempt Resuscitation/CPR wit intubation and mechanical ventilation. PRE-ARREST: Use entire range of life support measures to stabilize the patient. Care Teams Collection Analyst Relationship Specialty Start Date End Date Frank Barahona MD [address] [address] PCP - General Family Medicine 11/25/21 Kate Duke APRN, BUSINESS OPERATIONS CONSULTANT [address] [place] [address] Nurse Practitioner Advanced Practice Nurse 12/08/21 Francis Woodard MD [address] [place] [address] Consulting Physician Pediatric Cardiology 12/08/21 Ca, [facility] 12/08/21
--- OUTSIDE RECORDS SUMMARY | 2024-10-17 17:01 | XMS_ITS | Clinical Summary ---
Author Organization [facility] Address [address] [place] [address] Care Team Providers Care Working Manager Name Role Phone Frank Barahona MD Primary Care Provider [phone] Sandrine Bocanegra MD Unavailable [phone] Jose Louise MD Unavailable [phone] Allergies Active Allergy Reactions Criticality Noted Date Comments Erythromycin Rash Low 03/07/2019 Penicillins Rash Low 03/07/2019 Sulfa Antibiotics Unknown 03/07/2019 Medications warfarin 5 MG tablet On sat, mon, tu, thur 02/08/2019 Active warfarin 7.5 MG tablet Mon, wed, mon12/08/2018 Active ALPRAZolam 0.5 MG tablet Take 0.5 mg by mouth 3 (three) times daily as needed. 02/08/2019 Active Active Problems No known active problems Family History Medical History Relation Comments Stroke Maternal Grandfather Stroke Paternal Grandfather Valve Disease Paternal Grandmother Relation Status Comments Maternal Grandfather Paternal Grandfather Paternal Grandmother Social History Tobacco Use Types Packs/Day Years Used Date Smoking Tobacco: Former Electronic Cigarettes Smokeless Tobacco: Former Alcohol Use Standard Drinks/Week Comments Not Currently 0 (1 standard drink = 0.6 oz pur e alcohol) h/o alcoholism Sex and Gender Information Value Date Recorded Sex Assigned at Not on file Legal Sex Male 5:54 PM RADIO PRESENTER Gender Identity Not on file Sexual Orientation Not on file 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 on file Not on file Not on file Last Filed Vital Signs Vital Sign Reading Time Taken Comments Blood Pressure 104/70 03/26/2019 10:05 AM RADIO PRESENTER Pulse 68 03/26/2019 10:05 AM RADIO PRESENTER Temperature 37.2 C (98.9 F) 03/07/2019 8:51 AM RADIO PRESENTER Respiratory Rate 16 03/26/2019 10:05 AM RADIO PRESENTER Oxygen Saturation 99% 03/26/2019 10:05 AM RADIO PRESENTER Inhaled Oxygen Concentration - - Weight 64.5 kg (142 lb 3.2 oz) 03/26/2019 10:05 AM RADIO PRESENTER Height 175.3 cm (5' 9) 03/26/2019 10:05 AM RADIO PRESENTER Body Mass Index 21 03/26/2019 10:05 AM RADIO PRESENTER Plan of Treatment Health Maintenance Due Date Last Done Comments Annual Physical 02/02/1987 Hepatitis C 02/02/2002 DTaP, Tdap and Td Vaccines ( 1 - Tdap) 02/02/2003 Hepatitis B Vaccines (1 of 3 - 19+ 3-dose series) 02/02/2003 HPV Vaccines (1 - 3-dose SCD M series) 02/02/2011 COVID-19 Vaccine (2023-2 5 season) 2024 Meningococcal B Vaccine Aged Out No l onger eligible based on patient's age to complete this topic Meningococcal Vaccine Aged Out No rajwinder shay eligible based on patient's age to complete this topic Pneumococcal Vaccine: Pediat rics (0 to 5 Years) and At-Risk Patients (6 to 49 Years) Aged Out No longer eligible b ased on patient's age to complete this topic RSV Immunizations Under 20 Months Aged Out No longer eligible based on patient's age to complete this topic Insurance NICK NICK Care Teams Working Manager Relationship Specialty Start Date End Date Frank Barahona MD [address] [address] PCP - General FAMILY PRACTICE 03/07/19 Sandrine Bocanegra MD -[address] [facility] [place] [address] INTERVENTIONAL CARDIOLOGY 03/07/19 Jose Louise [place] [address] [address] CARDIOVASCULAR DISEASE 03/07/19
--- OUTSIDE RECORDS SUMMARY | 2024-10-17 17:01 | XMS_ITS | Encounter Summary ---
Author Organization [facility] Address [address] [place] [address] Care Team Providers Care Shearer Screen Measurer And Trimmer Name Role Phone Frank Barahona MD Primary Care Provider [phone] Sandrine Bocanegra MD Unavailable Jose Louise MD Unavailable [phone] Encounter Details Date Type Department Care Team (Late st Contact Info) Description 07/14/2018 Abstract [facility] CONVERSION [address] [place] [address] , Generic ConversionMD Social History Tobacco Use Types Packs/Day Years Used Date Smoking Tobacco: Never Assessed Sex and Gender Information Value Date Recorded Sex Assigned at Not on file Legal Sex Male 5:54 PM UNDERPRESSER HAND Gender Identity Not on file Sexual Orientation Not on file documented as of this encounter Plan of Treatment Not on file documented as of this encounter Visit Diagnoses Not on filedocumented in this encounter Care Teams Shearer Screen Measurer And Trimmer Relationship Specialty Start Date End Date Frank Barahona MD [address] [address] PCP - General FAMILY PRACTICE 03/07/19 Sandrine Bocanegra MD [address] [address] INTERVENTIONAL CARDIOLOGY 03/07/19 Jose Louise MD [address] [address] CARDIOVASCULAR DISEASE 03/07/19 documented as of this encounter
--- OUTSIDE RECORDS SUMMARY | 2024-10-17 17:01 | XMS_ITS ---
Author Organization [facility] Address [address] [place] [address] Phone Care Team Providers Care Geospatial Image Analyst Name Role Phone Frank Barahona MD Primary Care Provider [phone] Kate Duke APRN, BANK CASHIER Unavailable [phone] Francis Woodard MD Unavailable [phone] [facility] Unavailab le Unavailable [facility] Status:Enrolled (Active) Start date:03/06/2024 Enrollment date:03/06/2024 Related social drivers of health:Intimate Partner Violence, Social Connections, Alcohol Use, Tobacco Use, Financial Resource Strain,Depression, Stress, Physical Activity, Food Insecurity, Transportation Needs, Housing Stability, Utilities Continued Care and Services Coordination
--- OUTSIDE RECORDS SUMMARY | 2024-10-17 17:02 | XMS_ITS | Clinical Summary ---
Author Organization [facility] [address] Address [address] [place] [address] Care Team Providers Care Placement Secretary Name Role Phone Frank Barahona MD Primary Care Provider [phone] Frank Barahona MD Unavailable [phone] Allergies Active Allergy Reactions Criticality Noted Date Comments Amoxicillin Rash Medium 02/14/2021 Azithromycin Rash Medium 02/14/2021 Erythromycin Other (See comments) Low Reaction: Unknown, Penicillin G Rash Medium 02/14/2021 Sulfa (Sulfonamide Antibiotics) Other (See comments) Low Reaction: Unknown, Sulfa (Sulfonamide Antibiotics) Rash Medium 02/14/2021 Medications ibuprofen (ADVIL) 100 mg tablet take 2 tablet by oral route every 4 - 6 hours as needed with food 0 0 03/24/19 15 Active ALPRAZolam (XANAX) 1 mg tablet take 1 tablet by oral route every day 0 0 03/24/19 15 Active warfarin (COUMADIN) 5 mg tablet 12/26/19 21 Active warfarin (COUMADIN) 7.5 mg tablet 12/26/19 21 Active [id number] folate-algal 27 mg iron-1.13 mg-581.92 mg capsule Take by mouth Active cholecalciferol (VITAMIN D-3) 1,000 unit capsule Take 1 capsule (1,000 Units total) by mouth daily Active warfarin (COUMADIN) 1 mg tablet 10/09/19 22 Active furosemide (LASIX) 20 mg tablet Take 1 tablet (20 mg total) by mouth daily 30 tablet 11 11/06/19 22 Active Additional Information Patient not taking.Reported on 04/25/[address] (CYMBALTA) 60 mg capsule Take 1 capsule (60 mg total) by mouth daily 06/05/19 24 Active metoprolol XL (TOPROL-XL) 25 mg extended release tablet Take 1 tablet (25 mg total) by mouth daily 04/17/19 24 Active busPIRone (BUSPAR) 15 mg tablet 06/19/19 24 Active ondansetron ODT (ZOFRAN-ODT) 4 mg disintegrating tablet Take 1 tablet (4 mg total) by mouth every 8 (eight) hours as needed for nausea or vomiting 20 tablet 06/21/19 24 Active Active Problems Problem Noted Date Diagnosed Date S/P pulmonary valve replacement 01/11/2022 Atrial septal defect 12/08/2021 Pulmonary atresia with intact ventricular septum 12/08/2021 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 Overview (12/06/2021): Added automatically from request for surgery [id number] Severe pulmonary hypertension 10/13/2021 Near syncope 10/13/2021 Congenital heart disease 09/16/2021 Pulmonary atresia 09/16/2021 Palpitations 09/16/2021 Chronic anticoagulation 09/16/2021 Tobacco use 08/05/2010 Current smoker 08/05/2010 Paroxysmal atrial fibrillation 08/05/2009 Pulmonary atresia 08/05/2009 Medical History Medical History Date Comments Atrial fibrillation (HCC) Congenital heart disorder Heart murmur Family History Medical History Relation Name Comments Hyperlipidemia Father Cancer Mother Relation Name Status Comments Father Mother Social History Tobacco Use Types Packs/Day Years Used Date Smoking Tobacco: Every Day Cigarettes Smokeless Tobacco: Never Tobacco Cessation:Ready to Q uit: Not Asked; Counseling Given: Not Answered Alcohol Use Standard Drinks/Week Comments Yes 0 (1 standard drink = 0.6 oz pur e alcohol) AUDIT-C Answer Date Recorded Q1: How often do you have a drink containing alcohol? Never 10/28/2021 Q2: How many drinks containi ng alcohol do you have on a typical day when you are drinking? Patient does not drink Q3: How often do you have si x or more drinks on one occasion? Never 10/28/2021 Personal Safety Answer Date Recorded Have you ever been in or are you currently in a harmful physical or emotional relationship or is someone making you feel afraid or unsafe? Denies 06/21/2023 Sex and Gender Information Value Date Recorded Sex Assigned at Not on file Legal Sex Male 8:04 AM DANCING INSTRUCTOR Gender Identity Not on file Sexual Orientation Not on file Obstetrics History Last Filed Vital Signs Vital Sign Reading Time Taken Comments Blood Pressure 115/81 06/21/2023 3:15 PM CDT Pulse 73 06/21/2023 3:15 PM CDT Temperature 37 C (98.6 F) 06/21/2023 11:06 AM CDT Respiratory Rate 18 06/21/2023 3:15 PM CDT Oxygen Saturation 100% 06/21/2023 3:15 PM CDT Inhaled Oxygen Concentration - - Weight 63.2 kg (139 lb 5.3 oz) 06/21/2023 11:06 AM CDT Height 175.3 cm (5' 9) 06/21/2023 11:06 AM CDT Body Mass Index 20.58 06/21/2023 11:06 AM CDT Plan of Treatment Health Maintenance Due Date Last Done Comments Depression Screening 1984 Hepatitis C Screening 1984 Varicella Vaccines (1 of 2 - 13+ 2-dose series) 02/02/1997 Hepatitis B Screening 02/02/2002 Regular Well Visit/Exam 18-64 02/02/2002 Pneumococcal vaccine <65 (1 of 2 - PCV) 02/02/2003 HPV Vaccines (1 - 3-dose SCDM series) 02/02/2011 Covid-19 Vaccine ( season) 10/07/202411/2020, 09/18/2020 Influenza Vaccine (#1) 2024 12/10/2021 DTaP/Tdap/Td Vaccine (2 - Td or Tdap) 12/24/2031 Insurance [facility] [address] [place] [address] [employer] Advance Directives For more information, please contact: [phone] * Full Code (Latest Code Status on File) Date Activated Date Inactivated Comments 10/28/2021 9:54 AM 10/28/2021 2:45 PM Care Teams Placement Secretary Relationship Specialty Start Date End Date Frank Barahona MD PCP - General Family Medicine 02/14/21 Frank Barahona MD 02/14/21
--- OUTSIDE RECORDS SUMMARY | 2024-10-17 17:02 | XMS_ITS | Encounter Summary ---
Author Organization [facility] Address [address] [place] [address] Phone Care Team Providers Care Line Operator Name Role Phone Frank Barahona MD Primary Care Provider [phone] Kate Duke APRN, PATTERN LAYOUT WORKER Unavailable [phone] Francis Woodard MD Unavailable [phone] Ct, [facility] Unavailab le Unavailable Encounter Details Date Type Department Care Team (Latest Contact Info) Description 01/06/2022 Transcribe Orders [facility] Preop[facility]Pac[facility] II [address] [place] [address] Neri Sal MD [address] [facility] [address] [place], [place] [id number] Preop testing (Primary Dx) Social History Tobacco Use Types Packs/Day Years Used Date Smoking Tobacco: Every Day Cigarettes Smokeless Tobacco: Never Sex and Gender Information Value Date Recorded Sex Assigned at Not on file Legal Sex Male 3:35 PM CDT Gender Identity Not on file Sexual Orientation Not on file COVID-19 Exposure Response Date Recorded In the last 10 days, have yo u been in contact with someone who was confirmed or suspected to have Coronavirus/COVID-19? No / Unsure 12/27/2021 10:49 AM LINE FIXER documented as of this encounter Plan of Treatment Not on file documented as of this encounter Procedures Procedure Name Priority Date/Time Associated Diagnosis Comments PROTIME (PT) (PROTHROMBIN TIME) Routine 06/06/2022 12:00 AM CDT documented in this encounter Results * (ABNORMAL) PROTIME (PT) (PROTHROMBIN TIME) (06/06/2022 12:00 AM CDT) INR 2(A) 0.9 - 1.1 SCAN Blood 06/06/2022 us Neri Sal MD HEMATOLOGY ORDERABLE S Final Result SCAN * PROTIME (PT) (PROTHROMBIN TIME) (01/11/2022 6:14 AM LINE FIXER) PROTIME-PATIENT 13.4 11.6 - 14.8 sec 01/11/2022 7:00 AM LINE FIXER [facility] INR 1.0 0.9 - 1.2 01/11/2022 7:00 AM LINE FIXER [facility] Comment: Therapeutic Ranges INR = 2.0-3.0: Venous thromb, atrial fib, pul embolism, tissue heart valve, ami. INR = 2.5-3.5: Mechanical heart valve Critical value for INR is >/= 4.5 Blood Venipuncture / Unknown 01/11/2022 6:14 AM LINE FIXER 01/11/2022 6:43 AM LINE FIXER us Neri Sal MD HEMATOLOGY ORDERABLE S Final Result [facility] [address] [place] [address], [place] documented in this encounter Visit Diagnoses Diagnosis Preop testing- Primary Preoperative examination, unspecified documented in this encounter Care Teams Line Operator Relationship Specialty Start Date End Date Frank Barahona MD [address] [place] [address] PCP - General Family Medicine 11/25/21 Kate Duke APRN, PATTERN LAYOUT WORKER [address] [place] [address] Nurse Practitioner Advanced Practice Nurse 12/08/21 Francis Woodard MD [address] [place] [address] Consulting Physician Pediatric Cardiology 12/08/21 Ct, [facility] 12/08/21 documented as of this encounter
--- OUTSIDE RECORDS SUMMARY | 2024-10-17 17:02 | XMS_ITS | Encounter Summary ---
Author Organization [facility] Address [address] [place] [address] Phone Care Team Providers Care Enterprise Systems Administrator Name Role Phone Frank Barahona MD Primary Care Provider [phone] Kate Duke APRN, CLOTHES SEPARATOR Unavailable [phone] Francis Woodard MD Unavailable [facility] Unavailab le Unavailable Reason for Visit * Reason Comments Medication Refill Encounter Details Date Type Department Care Team (Late st Contact Info) Description 04/15/[address] [facility] [place] [address] [place] [address] Francis Woodard MD [address] [place] [address] Medication Refill Social History Tobacco Use Types Packs/Day Years Used Date Smoking Tobacco: Every Day Cigarettes 0.3 20 Smokeless Tobacco: Never Alcohol Use Standard Drinks/Week Comments Not Currently 0 (1 standard drink = 0.6 oz pur e alcohol) Sexually Active Control Partners Comments Not Currently Male Condom Female Sex and Gender Information Value Date Recorded Sex Assigned at Not on file Legal Sex Male 3:35 PM CDT Gender Identity Not on file Sexual Orientation Not on file documented as of this encounter Miscellaneous Notes * Telephone Encounter - Isabelle Aguilar RN - 04/17/2023 10:09 AM CDT metoprolol dose verified Last office visit: 8/9/23 Next office visit: 09/20/23 metoprolol last prescribed on 04/19/[address] Woodard Refill pending, please sign if appropriate. documented in this encounter Plan of Treatment Not on file documented as of this encounter Visit Diagnoses Not on filedocumented in this encounter Care Teams Enterprise Systems Administrator Relationship Specialty Start Date End Date Frank Barahona MD [address] [address] PCP - General Family Medicine 11/25/21 Kate Duke APRN, CLOTHES SEPARATOR [address] [place] [address] Nurse Practitioner Advanced Practice Nurse 12/08/21 Francis Woodard MD [address] [place] [address] Consulting Physician Pediatric Cardiology 12/08/21 [facility] 12/08/21 documented as of this encounter
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
--- NOTE | 2024-10-17 17:13 | ECG_ITS ---
Test Date: 2024-10-17 18:06:05 Measurements Intervals Gantt Rate: 82 P: 76 HI: 243 QRS: 76 QRSD: 99 T: 79 QT: 379 QTc: 444 Interpretive Statements SINUS RHYTHM WITH FIRST DEGREE AV BLOCK RIGHT ATRIAL ENLARGEMENT [0.3mV P WAVE] LEFT ATRIAL ENLARGEMENT [-0.15mV P WAVE IN V1/V2] POSSIBLE RIGHT VENTRICULAR CONDUCTION DELAY [RSR (QR) IN V1/V2] ST ELEVATION, PROBABLY EARLY REPOLARIZATION [ST ELEVATION WITH NORMALLY INFLECTED T WAVE] No previous ECG available for comparison Electronically Signed On 10-18-2024 15:16:23 CDT by Abdirashid Shah M.D.
--- NOTE | 2024-10-17 17:14 | PC.NURSE ---
Pt. to CT from triage room.
[2024-10-17 17:20] LABS: Hematocrit 41.2 % (42.0-52.0); Hemoglobin 13.7 g/dL (14.0-18.0); Immature Granulocyte Percent A 0.3 % (0-0.5); Lymphocytes Absolute Auto 3.57 K/mm3 (0.9-3.2); Mean Corpuscular HGB Conc 33.3 g/dl (32-36); Mean Corpuscular Hemoglobin 31.0 pg (26-34); Mean Corpuscular Volume 93.2 fl (80-100); Nucleated Red Blood Cells Absolute Auto 0.000 K/mm3 (0.0-0.012); Nucleated Red Blood Cells Perc 0.0 % (0.0-0.2); Platelet Count Result 290 k/mm3 (150-375); Red Blood Count 4.42 M/mm3 (4.6-6.20); White Blood Count 9.4 K/mm3 (4.5-10.0)
[2024-10-17 17:40] LABS: Alanine Aminotransferase 30 U/L (6-50); Albumin Level 4.4 g/dL (3.5-5.1); Alkaline Phosphatase 93 U/L (38-126); Anion Gap 10 mmol/L (4-12); Aspartate Amino Transferase 56 U/L (17-59); Bilirubin,Total 0.4 mg/dL (0.2-1.3); Blood Urea Nitrogen 22 mg/dL (9-20); Calcium 8.8 mg/dL (8.4-10.2); Carbon Dioxide 23 mmol/L (22-30); Chloride 108 mmol/L (98-107); Estimated CRCL calculation 79 ml/min; Estimated Glomerular Filt Rate > 60; Glucose 101 mg/dL (65-110); Potassium 4.2 mmol/L (3.4-5.0); Sodium 141 mmol/L (137-145); Total Protein 7.7 g/dL (6.3-8.2)
[2024-10-17] MEDS: MORPHINE SULFATE (*CRX) 4 MG/ML INJ IV PUSH (18:56)
[2024-10-17] MEDS: ONDANSETRON INJ 4 MG/2 ML VIAL IV PUSH (18:56)
[2024-10-17 19:00] LABS: Troponin I < 0.012 ng/mL (0.000-0.034)
[2024-10-18 11:19] LABS: Estimated CRCL calculation 66 ml/min; Estimated Glomerular Filt Rate > 60
== END 2024-10-17 19:55 | disposition short-term general hospital (02) ==
LOC: ANHED 19:41
PROVIDERS: Registered Nurse; Emergency Provider Physician Assistant; PCP Family Medicine
DX: S82.241A Displaced spiral fracture of shaft of right tibia, initial encounter for closed fracture (principal); S82.431A Displaced oblique fracture of shaft of right fibula, initial encounter for closed fracture; I48.91 Unspecified atrial fibrillation; F17.210 Nicotine dependence, cigarettes, uncomplicated; V86.56XA Driver of dirt bike or motor/cross bike injured in nontraffic accident, initial encounter
CPT/HCPCS: 29505; 36415; 70450; 70486; 71260; 72125; 72129; 72132; 73560; 73590; 73600; 74177; 80053; 82077; 82565; 84484; 85025; 93005; 96374; 96375; 99285; J2270; J2405; Q9967

== ENCOUNTER 2024-12-30 13:30 | Outpatient (RCR) | payer MEDICAID, SELFPAY ==
--- NOTE | 2024-12-04 11:20 | OPREHPOC ---
Outpatient Therapy Plan of Care This is a Multidisciplinary Plan of Care that may contain components documented by all disciplines (PT, OT, and ST.) PT Problem 1 PT Problem #1 Knowledge Deficit PT Goal 1 Goal / Goal Update *independent with HEP * gait pattern correct with assistive device- progress per protocol Target Visit 10 PT Problem 2 PT Problem #2 Pain PT Goal 1 Goal / Goal Update 1* pt report pain rating of 2/10 at worst with increased activity level 2* pt report with sleeping, no awakening due to pain Target Visit 10 PT Problem 3 PT Problem #3 Impaired Strength PT Goal 1 Goal / Goal Update 1* increase strength of R knee to 4/5 2* strength of R ankle 4-/5 3* pt able to flex/extend toes through full ROM increase strength to improve mobility and transfer skills Target Visit 10 PT Problem 4 PT Problem #4 Impaired Range of Motion PT Goal 1 Goal / Goal Update improve R LE active ROM to improve gait skills and return to normal motion 1* knee extension 0' 2* knee flexion 120' 3* ankle DF 5' 4* ankle PF 50' 5 *ankle inversion 30' 6* ankle eversion 20' Target Visit 10 PT Problem 5 PT Problem #5 Impaired Functional Mobility PT Goal 1 Goal / Goal Update 1* up/down 12 steps with one hand railing, independent 2* pt ambulate in community, with assistive device Target Visit 10
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
--- NOTE | 2024-12-24 10:06 | PCPTNOTE ---
No call no show per front office. AKS
--- NOTE | 2025-01-03 09:28 | PCPTNOTE ---
pt did not show for today's reeval appt. Called and left voice mail message.
--- NOTE | 2025-01-28 14:24 | OPREHPOC ---
Outpatient Therapy Plan of Care This is a Multidisciplinary Plan of Care that may contain components documented by all disciplines (PT, OT, and ST.) PT Problem 1 PT Problem #1 Knowledge Deficit PT Goal 1 Goal / Goal Update *independent with HEP * gait pattern correct with assistive device- progress per protocol 01-28-25 d/c pt stopped attending goals were not addressed Target Visit 10 PT Problem 2 PT Problem #2 Pain PT Goal 1 Goal / Goal Update 1* pt report pain rating of 2/10 at worst with increased activity level 2* pt report with sleeping, no awakening due to pain 01-28-25 d/c pt stopped attending goals were not addressed Target Visit 10 PT Problem 3 PT Problem #3 Impaired Strength PT Goal 1 Goal / Goal Update 1* increase strength of R knee to 4/5 2* strength of R ankle 4-/5 3* pt able to flex/extend toes through full ROM increase strength to improve mobility and transfer skills 01-28-25 d/c pt stopped attending goals were not addressed Target Visit 10 PT Problem 4 PT Problem #4 Impaired Range of Motion PT Goal 1 Goal / Goal Update improve R LE active ROM to improve gait skills and return to normal motion 1* knee extension 0' 2* knee flexion 120' 3* ankle DF 5' 4* ankle PF 50' 5 *ankle inversion 30' 6* ankle eversion 20' 01-28-25 d/c pt stopped attending goals were not addressed Target Visit 10 PT Problem 5 PT Problem #5 Impaired Functional Mobility PT Goal 1 Goal / Goal Update 1* up/down 12 steps with one hand railing, independent 2* pt ambulate in community, with assistive device 01-28-25 d/c pt stopped attending goals were not addressed Target Visit 10
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
== END 2025-01-28 14:29 | disposition home or self-care (01) ==
LOC: ANHPT 13:30
PROVIDERS: PCP Family Medicine
DX: S82.201A Unspecified fracture of shaft of right tibia, initial encounter for closed fracture (principal); S82.401A Unspecified fracture of shaft of right fibula, initial encounter for closed fracture
CPT/HCPCS: 97110; 97112; 97116; 97140; 97161; 97530